=== PATIENT | female | born 1955 | race Hispanic/Latino ===

== ENCOUNTER 2019-02-01 15:52 | Emergency (ER) | payer OTHER ==
--- OUTSIDE RECORDS SUMMARY | 2019-02-01 15:53 | XMS REPORT | Clinical Summary ---
:1955 Author Organization [facility] Address [address] [place] [address] Care Team Providers Name Role Phone Aureliano Willett Primary Care Provider Unavailable Allergies No Known Allergies Medications Medication Sig Dispensed Refills Start Date End Date Status metFORMIN Take 1,000 mg by 0 Active (GLUCOPHAGE) 1000 MG mouth daily with tablet breakfast. glipiZIDE Take 5 mg by mouth 2 0 Active (GLUCOTROL) 5 MG (two) times daily tablet before meals. ketorolac (ACULAR) Place 1 drop into 0 Active 0.5 % ophthalmic both eyes 4 (four) solution times daily. canagliflozin Take 300 mg by mouth 0 Active (INVOKANA) 300 mg daily. tablet gabapentin Take 300 mg by mouth 0 Active (NEURONTIN) 300 MG 3 (three) times capsule daily. lisinopril-hydrochlo Take 1 tablet by 0 Active rothiazide mouth daily. (PRINZIDE,ZESTORETIC ) 20-12.5 mg per tablet UNKNOWN Med Name: . 0 Active insulin aspart Inject 0 Active protamine-insulin subcutaneously 2 aspart (NOVOLOG MIX (two) times daily 70/30) 100 unit/mL with breakfast and (70-30) Soln dinner. injection INSULIN Inject 20 Units 0 Active GLARGINE,HUM.REC.ANL subcutaneously daily OG (TOUJEO SOLOSTAR with breakfast. SUBQ) Active Problems Problem Noted Date Elevated LFTs 09/12/2017 Jaundice 09/12/2017 Mass of pancreas 09/12/2017 Obstructive jaundice 09/12/2017 Hypertension 09/08/2016 DM type 2 (diabetes mellitus, type 2) 09/08/2016 PVD (peripheral vascular disease) 09/08/2016 Hyperlipidemia 09/08/2016 Normocytic anemia 09/08/2016 Limb ischemia 08/31/2016 Social History Tobacco Use Types Packs/Day Years Used Date Former Smoker 0.25 1 Quit: 11/11/1972 Smokeless Tobacco: Never Used Alcohol Use Drinks/Week oz/Week Comments No Sex Assigned at Date Recorded Not on file Job Start Date Occupation Industry Not on file Not on file Not on file Travel History Travel Start Travel End No recent travel history available. Last Filed Vital Signs Not on file Plan of Treatment Date Type Specialty Care Team Description 02/11/2019 Hospital Encounter Patel Ontiveros MD [address] [facility] [address] [place] [address] [phone] 02/11/2019 Surgery Patel Ontiveros MD [facility] [address] [facility] [address] [place] [address] [phone] Implants Implanted Type Area Cat Dog Or Other Pet Groomer Device Shelf Model / Identifier Expiration Serial / Date Lot Stent Bili Rx [id number] - [id number] Stents-Per N/A: [employer]: ENDO 07/17/2019 [id number] / Implanted: Qty: 1 on 09/16/2017 by King Mckay MD ipheral Bile / Duct [id number] Allograft,Dermacell 6x16cm - [id number] Tissue LIFENET 08/01/2017 [id number] / Implanted: Qty: 1 on 09/05/2016 Graft/Subs / titute Grft Shiraz Mrtrstm 500 Mg [id number] - [id number] Tissue [employer] 06/10/2018 [id number] / Implanted: Qty: 1 on 09/05/2016 by Ky Rose DPOziel Graft/Subs [id number] / titute [id number] Tissue Nucell Med W/Matrix Nc-1001 - [id number] Tissue Left: NUTECH MED NC-1001 / Implanted: Qty: 1 on 09/05/2016 by Ky Rose DPM Graft/Subs Foot / titute Allograft,Dermacell 6x16cm - [id number] Tissue Left: LIFENET 06/27/2019 [id number] / Implanted: Qty: 1 on 12/06/2016 by Ky Rose DPM Graft/Subs Foot [id number] / titute Epifix Injectable 160mg Ei-[id number] - [id number] Tissue [employer] 11/2020 [id number] / Implanted: Qty: 1 on 12/06/2016 by Ky Rose DPM Graft/Subs / titute [id number] Results Not on fileafter 01/31/2018 Insurance Payer Benefit Plan / Group Subscriber ID Type Phone Address MEDICARE MEDICARE A B xxxxxxxxxxx Medicare [facility] xxxxxxxxxxxx HMO/POS [phone] CHOICE CHOICE EXCHANGE Advance Directives For more information, please contact:[address] [phone] Code Status Date Activated Date Inactivated Comments Full Code 09/12/2017 11:25 PM 09/17/2017 5:25 PM This code status was determined by: Patient Full Code 09/07/2016 10:50 AM 09/08/2016 7:30 PM This code status was determined by: Patient
--- OUTSIDE RECORDS SUMMARY | 2019-02-01 15:54 | XMS REPORT | Continuity of Care Document ---
:1955 Author Organization Interface Problems Problem Status Onset Classification Date Comments Source Date Reported ADENOCARCINOMA OF Active 12/16/19 [facility] PANCREAS 19 Malignant 06/18/20 12/29/2018 [facility] neoplasm of head 18 of pancreas MALIGNANT Active 09/16/20 [facility] NEOPLASM OF 17 PANCREATIC HEAD PANCREATIC CANCER Active 11/11/19 [facility] 01 MALIGNANT Active [facility] NEOPLASM OF HEAD OF PANCREAS Medications Medication Details Route Status Patient Ordering Order Source Instructions Provider Date Imodium A-D 2 mg, PO, Active PRN, 0 2017 [facility] Refill(s) gabapentin PO, BID, Active 0 2017 [facility] Refill(s) Hydrochlorothiazide 12.5 mg, Active PO, 2017 [facility] Daily, 0 Refill(s) Ketorolac See Active Tromethamine 5 MG/ML Instructi 2017 [facility] Ophthalmic Solution ons, 1 drp BOTH EYES QID, 0 Refill(s) Lisinopril 20 mg, Active PO, 2017 [facility] Daily, 0 Refill(s) 1.5 ML Insulin 35 units, Active Glargine 300 UNT/ML SUB-Q, 2017 [facility] Prefilled Syringe Daily, 0 [Toujeo] Refill(s) Glipizide 5 mg, PO, Active Daily, 0 2017 [facility] Refill(s) Allergies, Adverse Reactions, Alerts Substance Category Reaction Severity Reaction Status Date Comments Source type Reported Immunizations Immunization Date Given Site Status Last Updated Comments Source Results Order Results Value Reference Date Interpretation Comments Source Name Range Vital Signs Vital Sign Value Date Comments Source Weight 61.847 12/24/2018 [facility] Heart Rate 85 12/24/2018 [facility] Respitory Rate 18 12/24/2018 [facility] Systolic (mm Hg) 148 12/24/2018 [facility] Diastolic (mm Hg) 66 12/24/2018 [facility] Weight 65.966 06/11/2018 [facility] Heart Rate 80 06/11/2018 [facility] Respitory Rate 16 06/11/2018 [facility] Systolic (mm Hg) 129 06/11/2018 [facility] Diastolic (mm Hg) 68 06/11/2018 [facility] Heart Rate 86 04/09/2018 [facility] Systolic (mm Hg) 130 04/09/2018 [facility] Diastolic (mm Hg) 72 04/09/2018 [facility] Respitory Rate 16 04/09/2018 [facility] Weight 70.114 04/02/2018 [facility] Systolic (mm Hg) 133 04/02/2018 [facility] Diastolic (mm Hg) 88 04/02/2018 [facility] Respitory Rate 18 04/02/2018 [facility] Heart Rate 68 04/02/2018 [facility] Weight 71.051 03/26/2018 [facility] BMI Calculated 28.65 03/26/2018 [facility] Height 157.48 cm 03/26/2018 [facility] Respitory Rate 18 03/26/2018 [facility] Heart Rate 76 03/26/2018 [facility] Systolic (mm Hg) 147 03/26/2018 [facility] Diastolic (mm Hg) 73 03/26/2018 [facility] Encounters Location Location Encounter Encounter Reason Attending ADM DC Status Source Details Type Number For Provider Date Date Visit [facility] Recurring [id number] [facility] [id number] [facility] [id number] Fabian 06/11 06/12 [facility] Sabino /2017 [facility] Outpatient [id number] Fabian 12/24 12/25 [facility] Sabino /2018 [facility] Procedures Procedure Code Date Perfomer Comments Source Amputation great [id number] [facility]
--- OUTSIDE RECORDS SUMMARY | 2019-02-01 15:54 | XMS REPORT | Summary of Care ---
:1955 Author Organization [facility] [place] [facility] Address [address] [place], [place] [address]- Encounter [facility] Encntr_alias(FIN) [id number] Date(s): 06/11/18 - 06/11/18 [facility] [place] [facility] [address] [place] [address]- [phone] Encounter Diagnosis Malignant neoplasm of head of pancreas (Final) - 06/17/18 Discharge Disposition: Home or Self Care Attending Physician: Fabian Gallo MD Vital Signs Most recent to oldest [Reference Range]: 1 Blood Pressure [90-140/60-90 mmHg] 129/68 mmHg (06/11/18 1:05 PM) Respiratory Rate [14-20 BRMIN] 16 BRMIN (06/11/18 1:05 PM) Peripheral Pulse Rate [60-100 bpm] 80 bpm (06/11/18 1:05 PM) Weight 65.966 kg (06/11/18 1:05 PM) Problem List No data available for this section Allergies, Adverse Reactions, Alerts Substance Reaction Severity Status NKDA Active Medications No data available for this section Results No data available for this section Immunizations No data available for this section Procedures Procedure Date Related Diagnosis Body Site Status Amputation great toe Completed Social History Social History Type Response Substance Abuse Use: None. Alcohol Never Smoking Status Never smoker; Previous treatment: None; Exposure to Tobacco Smoke None; Cigarette Smoking Last 365 Days No; Reg Smoking Cessation Counseling No entered on: 12/24/18 Assessment and Plan No data available for this section
--- OUTSIDE RECORDS SUMMARY | 2019-02-01 15:54 | XMS REPORT | Summary of Care ---
:1955 Author Organization [facility] Address [address] [place], [place] [address]- Encounter [facility] Encntr_alishantell(FIN) [id number] Date(s): 12/24/18 - 12/24/18 [facility] [address] [place] [address]- [phone] Discharge Disposition: Home or Self Care Attending Physician: Fabian Gallo MD Referring Physician: Sheng Pearson MD Vital Signs Most recent to oldest [Reference Range]: 1 Blood Pressure [90-140/60-90 mmHg] 148/66 mmHg *HI* (12/24/18 9:44 AM) Respiratory Rate [14-20 BRMIN] 18 BRMIN (12/24/18 9:44 AM) Peripheral Pulse Rate [60-100 bpm] 85 bpm (12/24/18 9:44 AM) Weight 61.847 kg (12/24/18 9:44 AM) Problem List No data available for this [...]
--- OUTSIDE RECORDS SUMMARY | 2019-02-01 15:55 | XMS REPORT ---
:1955 [facility] Address [address] [place] [address] Dr. Zapata [address] [place] [address] Care Team Providers Name Role Phone NEMO SUGGS Unavailable Unavailable INDIRA HIGGINS Unavailable Unavailable Problems This patient has no known problems. Allergies, Adverse Reactions, Alerts This patient has no known allergies or adverse reactions. Medications This patient has no known medications. Results Test Description Test Time Test Comments Text Results Atomic Results Result Comments FINE NEEDLE ASPIRATION 2017-09-18 13:25:00 Medical Cytology Report BY CLINICIAN Case: [id number] Authorizing Provider: King Mckay MD Collected: 09/16/2017 1613 Ordering Location: [address] Received: 09/16/2017 1820 SERVICE Pathologist: Rosamaria Gandhi MD Specimen: Pancreas, Head, Head of pancreas mass HEAD OF PANCREAS MASS, FNA BY CLINICIAN (CYTOSPINS AND CELL BLOCK OF ASPIRATE): - ADENOCARCINOMA Signing Pathologist Direct Phone Line: [phone] signed by Rosamaria Gandhi MD on 09/18/2017 at 1:25 [id number], 612479.0 x 4.0 cm irregular head of pancreas massHEAD OF PANCREAS MASS FNACell block(A2) and 4 cytospins prepared from 20 ml cytorich red fixative sampleCollected: [id number]: [id number], [facility] of [facility], [address] [place] [address], [facility], [facility] of [facility], [address] [place] [address], BLOOD CULTURE 2017-09-18 10:00:00 Test Item Value Reference Range Comments CULTURE (BEAKER) (test zaly=1997) No growth in 5 days BLOOD [id number] 10:00:00 Test Item Value Reference Range Comments CULTURE (BEAKER) (test eeip=7141) No growth in 5 days POCT-GLUCOSE [id number] 08:04:00 Test Item Value Reference Range Comments POC-GLUCOSE METER (BEAKER) 129 mg/dL 70-[address] [facility] [address] (test ickh=2990) [facility] [address] [id number] 06:57:00 Test Item Value Reference Range Comments MAGNESIUM (BEAKER) (test akuo=443) 1.9 mg/dL 1.6-2.6 BASIC METABOLIC [id number] 06:57:00 Test Item Value Reference Range Comments SODIUM (BEAKER) (test 135 meq/L 136-145 lfwq=724) POTASSIUM (BEAKER) (test 3.8 meq/L 3.5-5.1 jviq=095) CHLORIDE (BEAKER) (test 101 meq/L 98-107 lrqg=272) CO2 (BEAKER) (test 26 meq/L 22-29 svpw=273) BLOOD UREA NITROGEN 19 mg/dL 7-21 (BEAKER) (test qjsm=045) CREATININE (BEAKER) (test 0.60 mg/dL 0.57-1.25 kgdf=329) GLUCOSE RANDOM (BEAKER) 143 mg/dL 70-105 (test frwi=294) CALCIUM (BEAKER) (test 8.8 mg/dL 8.4-10.2 jjtp=020) EGFR (BEAKER) (test 102 mL/min/1.73 sq m ESTIMATED GFR IS NOT guin=7440) ACCURATE CREATININE CLEARANCE IN PREDICTING GLOMERULAR FILTRATION RATE. ESTIMATED GFR IS NOT APPLICABLE FOR DIALYSIS PATIENTS. Specimen moderately ictericHEPATIC FUNCTION [id number] 06:57:00 Test Item Value Reference Range Comments TOTAL PROTEIN (BEAKER) (test jkfk=244) 6.9 gm/dL 6.0-8.3 ALBUMIN (BEAKER) (test bacx=8197) 2.7 g/dL 3.5-5.0 BILIRUBIN TOTAL (BEAKER) (test ekam=787) 9.7 mg/dL 0.2-1.2 BILIRUBIN DIRECT (BEAKER) (test gsma=660) 7.0 mg/dL 0.1-0.5 ALKALINE PHOSPHATASE (BEAKER) (test qiiu=938) 467 U/L 40-150 AST (SGOT) (BEAKER) (test wend=353) 146 U/L 5-34 ALT (SGPT) (BEAKER) (test elno=680) 100 U/L 6-55 Specimen moderately ictericCBC W/PLT COUNT & AUTO [id number] 06: 31:00 Test Item Value Reference Range Comments WHITE BLOOD CELL COUNT (BEAKER) (test nrwo=069) 6.9 K/ L 3.5-10.5 RED BLOOD CELL COUNT (BEAKER) (test uwtv=538) 3.59 M/ L 3.93-5.22 HEMOGLOBIN (BEAKER) (test vroa=733) 10.7 GM/DL 11.2-15.7 HEMATOCRIT (BEAKER) (test bexs=054) 31.9 % 34.1-44.9 MEAN CORPUSCULAR VOLUME (BEAKER) (test vsci=315) 88.9 fL 79.4-94.8 MEAN CORPUSCULAR HEMOGLOBIN (BEAKER) (test 29.8 pg 25.6-32.2 amrz=533) MEAN CORPUSCULAR HEMOGLOBIN CONC (BEAKER) (test 33.5 GM/DL 32.2-35.5 yhru=110) RED CELL DISTRIBUTION WIDTH (BEAKER) (test 15.1 % 11.7-14.4 erdq=716) PLATELET COUNT (BEAKER) (test nmgh=985) 245 K/CU MM 150-450 MEAN PLATELET VOLUME (BEAKER) (test oxvp=298) 12.3 fL 9.4-12.3 NUCLEATED RED BLOOD CELLS (BEAKER) (test 0 /100 WBC 0-0 usps=312) NEUTROPHILS RELATIVE PERCENT (BEAKER) (test 74 % piey=712) LYMPHOCYTES RELATIVE PERCENT (BEAKER) (test 15 % mjta=160) MONOCYTES RELATIVE PERCENT (BEAKER) (test 8 % qidc=434) EOSINOPHILS RELATIVE PERCENT (BEAKER) (test 2 % xqum=465) BASOPHILS RELATIVE PERCENT (BEAKER) (test 1 % snkp=035) NEUTROPHILS ABSOLUTE COUNT (BEAKER) (test 5.10 K/ L 1.56-6.13 yvzs=583) LYMPHOCYTES ABSOLUTE COUNT (BEAKER) (test 1.03 K/ L 1.18-3.74 dgqc=797) MONOCYTES ABSOLUTE COUNT (BEAKER) (test 0.53 K/ L 0.24-0.36 sdgk=576) EOSINOPHILS ABSOLUTE COUNT (BEAKER) (test 0.12 K/ L 0.04-0.36 ejqp=073) BASOPHILS ABSOLUTE COUNT (BEAKER) (test 0.06 K/ L 0.01-0.08 elpi=742) IMMATURE GRANULOCYTES-RELATIVE PERCENT (BEAKER) 0 % 0-1 (test bwbd=8468) POCT-GLUCOSE [id number] 21:05:00 Test Item Value Reference Range Comments POC-GLUCOSE METER (BEAKER) 173 mg/dL 70-110 TESTED AT [address] (test tvst=8507) [place] [address] FINE NEEDLE ASPIRATE (FNA) [id number] 20:00:00 Test Item Value Reference Range Comments CYTOLOGY RESULT POINTER (BEAKER) (test See Separate Report uvhz=6954) POCT-GLUCOSE [id number] 18:51:00 Test Item Value Reference Range Comments POC-GLUCOSE METER (BEAKER) 121 mg/dL 70-110 TESTED AT [address] (test mjoo=7375) [place] [address] POCT-GLUCOSE [id number] 16:55:00 Test Item Value Reference Range Comments POC-GLUCOSE METER (BEAKER) 103 mg/dL 70-110 TESTED AT [address] (test gryf=3862) [place] [address] [place], [id number] 16:36:00Reason for exam:->abnormal imagingFINAL REPORT ERCP Clinical History: abnormal imaging Impression: Intraoperative images are obtained. The radiologist is not present during the procedure. Images are presented for interpretation at the completion of the procedure. Please refer to the procedure report for more details. Number of images obtained: Five Fluoroscopic time: 73.3 seconds Signed: Jasbir Kruse Verified Date/Time: 09/16/2017 16:36:01 Reading Location: [facility] [id number] Consult Reading Room 04: 36 PMPOCT-GLUCOSE [id number] 12:15:00 Test Item Value Reference Range Comments POC-GLUCOSE METER (BEAKER) 131 mg/dL 70-110 TESTED AT [address] (test wqwc=6951) [facility] [address] [id number] 11:27:00 Test Item Value Reference Range Comments MAGNESIUM (BEAKER) (test nkiz=012) 1.8 mg/dL 1.6-2.6 BASIC METABOLIC [id number] 11:27:00 Test Item Value Reference Range Comments SODIUM (BEAKER) (test 137 meq/L 136-145 gnpg=178) POTASSIUM (BEAKER) (test 3.1 meq/L 3.5-5.1 hnxd=883) CHLORIDE (BEAKER) (test 102 meq/L 98-107 mscg=869) CO2 (BEAKER) (test 25 meq/L 22-29 wvvo=374) BLOOD UREA NITROGEN 17 mg/dL 7-21 (BEAKER) (test bewl=072) CREATININE (BEAKER) (test 0.63 mg/dL 0.57-1.25 uofz=714) GLUCOSE RANDOM (BEAKER) 145 mg/dL 70-105 (test fqqj=304) CALCIUM (BEAKER) (test 8.6 mg/dL 8.4-10.2 hrvp=950) EGFR (BEAKER) (test 96 mL/min/1.73 sq m ESTIMATED GFR IS NOT yvdr=6256) ACCURATE CREATININE CLEARANCE IN PREDICTING GLOMERULAR FILTRATION RATE. ESTIMATED GFR IS NOT APPLICABLE FOR DIALYSIS PATIENTS. Specimen markedly ictericPOCT-GLUCOSE [id number] 07:39:00 Test Item Value Reference Range Comments POC-GLUCOSE METER (BEAKER) 132 mg/dL 70-110 TESTED AT [address] (test sdio=3735) [facility] [address] HEPATIC FUNCTION [id number] 07:19:00 Test Item Value Reference Range Comments TOTAL PROTEIN (BEAKER) (test isfw=875) 6.4 gm/dL 6.0-8.3 ALBUMIN (BEAKER) (test bbhq=9257) 2.5 g/dL 3.5-5.0 BILIRUBIN TOTAL (BEAKER) (test ijlp=912) 13.7 mg/dL 0.2-1.2 BILIRUBIN DIRECT (BEAKER) (test okfu=412) 10.0 mg/dL 0.1-0.5 ALKALINE PHOSPHATASE (BEAKER) (test tbeq=308) 478 U/L 40-150 AST (SGOT) (BEAKER) (test pdyz=571) 186 U/L 5-34 ALT (SGPT) (BEAKER) (test nrsz=733) 109 U/L 6-55 Specimen markedly ictericPROTHROMBIN [id number] 01:09:00 Test Item Value Reference Range Comments PROTIME (BEAKER) (test foui=883) 15.9 seconds 11.7-14.7 INR (BEAKER) (test fflb=122) 1.3 <=5.9 RECOMMENDED COUMADIN/WARFARIN INR THERAPY RANGESSTANDARD DOSE: 2.0 - 3.0 Includes: PROPHYLAXIS forvenous thrombosis, systemic embolization; TREATMENT for venous thrombosis and/or pulmonary embolus.HIGH RISK: Target INR is 2.5-3.5 for patients with mechanical heart valves.POCT-GLUCOSE [id number] 20:45:00 Test Item Value Reference Range Comments POC-GLUCOSE METER (BEAKER) 201 mg/dL 70-110 TESTED AT [address] (test ywah=4821) [place] [id number] POCT-GLUCOSE [id number] 17:04:00 Test Item Value Reference Range Comments POC-GLUCOSE METER (BEAKER) 270 mg/dL 70-110 TESTED AT [address] (test rnnh=6492) [place] [address] POCT-GLUCOSE [id number] 12:09:00 Test Item Value Reference Range Comments POC-GLUCOSE METER (BEAKER) 257 mg/dL 70-110 TESTED AT [address] (test bptq=8768) [place] [address] POCT-GLUCOSE [id number] 08:15:00 Test Item Value Reference Range Comments POC-GLUCOSE METER (BEAKER) 109 mg/dL 70-110 TESTED AT [address] (test urhi=7803) [place] [id number] POCT-GLUCOSE [id number] 21:42:00 Test Item Value Reference Range Comments POC-GLUCOSE METER (BEAKER) 204 mg/dL 70-110 TESTED AT [address] (test quqk=3751) [place] [address] CT, CHEST, WITH [id number] 20:16:00FINAL REPORT CT, CHEST, WITH CONTRAST INDICATION: Cough, new onset COMPARISON: None TECHNIQUE : Postcontrast axially oriented images were obtained from the thoracic inlet throughthe lung bases. Coronal and sagittal reformats were provided. DOSE REDUCTION: Dose modulation, iterative reconstruction, and/or weight-based adjustment of the mA/kV was utilized to reduce the radiation dose to as low as reasonably achievable. FINDINGS: Lungs and Pleura: Clear lungs. No effusion or pneumothorax.Central airways: Patent.Mediastinum: No adenopathy.Heart and pericardium: Normal cardiac size. No pericardial effusion. Dense calcified coronary artery disease.Great vessels: Normal calibers.Included upper abdomen: No acute abnormalities.Regional skeletal structures: Diffuse demineralization and degenerative changes. No aggressive appearing lesion. Additional findings: None. IMPRESSION: No acute pulmonary abnormality. Signed: JR Scott Robert MDReport Verified Date/Time: 09/14/2017 20:16:43 Reading Location: [address] Reading Room POCT-GLUCOSE [id number] 17:30:00 Test Item Value Reference Range Comments POC-GLUCOSE METER (BEAKER) 260 mg/dL 70-110 TESTED AT [address] (test gjzt=3242) [place] [address] [id number] 16:52:00 Test Item Value Reference Range Comments POTASSIUM (BEAKER) (test bguu=447) 4.0 meq/L 3.5-5.1 POCT-GLUCOSE [id number] 12:36:00 Test Item Value Reference Range Comments POC-GLUCOSE METER (BEAKER) 277 mg/dL 70-110 TESTED AT [address] (test qlli=6232) [place] [address] POCT-GLUCOSE [id number] 08:24:00 Test Item Value Reference Range Comments POC-GLUCOSE METER (BEAKER) 196 mg/dL 70-110 TESTED AT [address] (test shbd=3609) [place] [address] BASIC METABOLIC [id number] 07:07:00 Test Item Value Reference Range Comments SODIUM (BEAKER) (test 137 meq/L 136-145 ptdp=941) POTASSIUM (BEAKER) (test 2.8 meq/L 3.5-5.1 cbih=587) CHLORIDE (BEAKER) (test 103 meq/L 98-107 zaaz=531) CO2 (BEAKER) (test 26 meq/L 22-29 sppr=074) BLOOD UREA NITROGEN 15 mg/dL 7-21 (BEAKER) (test rqfz=821) CREATININE (BEAKER) (test 0.56 mg/dL 0.57-1.25 lmjh=832) GLUCOSE RANDOM (BEAKER) 173 mg/dL 70-105 (test wgol=944) CALCIUM (BEAKER) (test 8.4 mg/dL 8.4-10.2 qkvi=354) EGFR (BEAKER) (test 110 mL/min/1.73 sq m ESTIMATED GFR IS NOT byhp=0149) ACCURATE CREATININE CLEARANCE IN PREDICTING GLOMERULAR FILTRATION RATE. ESTIMATED GFR IS NOT APPLICABLE FOR DIALYSIS PATIENTS. Specimen moderately ictericHEPATIC FUNCTION [id number] 07:07:00 Test Item Value Reference Range Comments TOTAL PROTEIN (BEAKER) (test uvkb=682) 6.0 gm/dL 6.0-8.3 ALBUMIN (BEAKER) (test kzgq=8844) 2.4 g/dL 3.5-5.0 BILIRUBIN TOTAL (BEAKER) (test tvaj=577) 11.2 mg/dL 0.2-1.2 BILIRUBIN DIRECT (BEAKER) (test xkja=204) 8.2 mg/dL 0.1-0.5 ALKALINE PHOSPHATASE (BEAKER) (test qgwi=852) 435 U/L 40-150 AST (SGOT) (BEAKER) (test xxpo=463) 170 U/L 5-34 ALT (SGPT) (BEAKER) (test hopb=682) 109 U/L 6-55 Specimen moderately ictericCBC W/PLT COUNT & AUTO [id number] 06: 56:00 Test Item Value Reference Range Comments WHITE BLOOD CELL COUNT (BEAKER) (test demm=589) 7.0 K/ L 3.5-10.5 RED BLOOD CELL COUNT (BEAKER) (test rudo=921) 3.54 M/ L 3.93-5.22 HEMOGLOBIN (BEAKER) (test trzu=790) 10.2 GM/DL 11.2-15.7 HEMATOCRIT (BEAKER) (test sgru=584) 30.7 % 34.1-44.9 MEAN CORPUSCULAR VOLUME (BEAKER) (test xxyu=474) 86.7 fL 79.4-94.8 MEAN CORPUSCULAR HEMOGLOBIN (BEAKER) (test 28.8 pg 25.6-32.2 swqi=012) MEAN CORPUSCULAR HEMOGLOBIN CONC (BEAKER) (test 33.2 GM/DL 32.2-35.5 rctb=522) RED CELL DISTRIBUTION WIDTH (BEAKER) (test 15.5 % 11.7-14.4 rscz=575) PLATELET COUNT (BEAKER) (test znlf=267) 220 K/CU MM 150-450 MEAN PLATELET VOLUME (BEAKER) (test kzlu=092) 12.5 fL 9.4-12.3 NUCLEATED RED BLOOD CELLS (BEAKER) (test 0 /100 WBC 0-0 ajno=827) NEUTROPHILS RELATIVE PERCENT (BEAKER) (test 68 % mstg=931) LYMPHOCYTES RELATIVE PERCENT (BEAKER) (test 16 % wheo=103) MONOCYTES RELATIVE PERCENT (BEAKER) (test 8 % ijsl=786) EOSINOPHILS RELATIVE PERCENT (BEAKER) (test 7 % xpfi=055) BASOPHILS RELATIVE PERCENT (BEAKER) (test 1 % lxmg=455) NEUTROPHILS ABSOLUTE COUNT (BEAKER) (test 4.71 K/ L 1.56-6.13 ywhd=433) LYMPHOCYTES ABSOLUTE COUNT (BEAKER) (test 1.13 K/ L 1.18-3.74 qbtj=477) MONOCYTES ABSOLUTE COUNT (BEAKER) (test 0.58 K/ L 0.24-0.36 psef=871) EOSINOPHILS ABSOLUTE COUNT (BEAKER) (test 0.47 K/ L 0.04-0.36 qrir=182) BASOPHILS ABSOLUTE COUNT (BEAKER) (test 0.06 K/ L 0.01-0.08 jqyn=150) IMMATURE GRANULOCYTES-RELATIVE PERCENT (BEAKER) 0 % 0-1 (test uqnv=9454) POCT-GLUCOSE [id number] 21:48:00 Test Item Value Reference Range Comments POC-GLUCOSE METER (BEAKER) 356 mg/dL 70-110 Notified PANCHO MARTINEZ/TESTED AT [facility] (test hlcr=5593) [address] [facility] [address] POCT-GLUCOSE [id number] 17:47:00 Test Item Value Reference Range Comments POC-GLUCOSE METER (BEAKER) 233 mg/dL 70-110 TESTED AT [address] (test mpda=0575) [place] [address] U/S, ABDOMINAL, [id number] 16:40:00Reason for exam:->ascitesShould this be performed at the bedside?->NoFINAL REPORT Abdominal ultrasound, limited, 09/13/2017. History: Evaluate forascites. Comparison: CT 09/12/2017. Discussion: Transverse and longitudinal images of the 4 quadrantsof the abdomen were obtained, demonstrating only trace amounts of free fluid anteriorly. IMPRESSION: Minimal ascites, insufficient for paracentesis. Signed: Bladimir Buckner Verified Date/Time: 09/13/2017 16: 40:44 Reading Location: [address] Ultrasound Reading Room POCT-GLUCOSE [id number] 12:14:00 Test Item Value Reference Range Comments POC-GLUCOSE METER (BEAKER) 206 mg/dL 70-110 TESTED AT [address] (test ytqa=1924) [place] [address] POCT-GLUCOSE [id number] 09:44:00 Test Item Value Reference Range Comments POC-GLUCOSE METER (BEAKER) 246 mg/dL 70-110 TESTED AT [address] (test iwhm=4428) [place] [address] CARCINOEMBRYONIC ANTIGEN (CEA)2017-09-13 06:33:00 Test Item Value Reference Range Comments CARCINOEMBRYONIC ANTIGEN (BEAKER) (test cfou=492) 3.9 ng/mL 0.0-5.0 ALPHA FETOPROTEIN (AFP), TUMOR [id number] 06:33:00 Test Item Value Reference Range Comments ALPHA-FETOPROTEIN (BEAKER) (test jska=9857) 3.1 ng/mL <10.0 [id number] 06:16:00 Test Item Value Reference Range Comments PHOSPHORUS (BEAKER) (test qxqg=171) 2.3 mg/dL 2.3-4.7 [id number] 06:16:00 Test Item Value Reference Range Comments MAGNESIUM (BEAKER) (test uhvx=212) 1.7 mg/dL 1.6-2.6 BASIC METABOLIC [id number] 06:16:00 Test Item Value Reference Range Comments SODIUM (BEAKER) (test 136 meq/L 136-145 rpyi=082) POTASSIUM (BEAKER) (test 2.8 meq/L 3.5-5.1 vvlj=220) CHLORIDE (BEAKER) (test 103 meq/L 98-107 enco=838) CO2 (BEAKER) (test 24 meq/L 22-29 wapc=713) BLOOD UREA NITROGEN 15 mg/dL 7-21 (BEAKER) (test ckfm=935) CREATININE (BEAKER) (test 0.65 mg/dL 0.57-1.25 txac=044) GLUCOSE RANDOM (BEAKER) 212 mg/dL 70-105 (test hxcg=576) CALCIUM (BEAKER) (test 8.9 mg/dL 8.4-10.2 ekjv=742) EGFR (BEAKER) (test 93 mL/min/1.73 sq m ESTIMATED GFR IS NOT tgdc=3424) ACCURATE CREATININE CLEARANCE IN PREDICTING GLOMERULAR FILTRATION RATE. ESTIMATED GFR IS NOT APPLICABLE FOR DIALYSIS PATIENTS. Specimen markedly ictericHEPATIC FUNCTION [id number] 06:16:00 Test Item Value Reference Range Comments TOTAL PROTEIN (BEAKER) (test zcyv=617) 6.7 gm/dL 6.0-8.3 ALBUMIN (BEAKER) (test buox=9746) 2.7 g/dL 3.5-5.0 BILIRUBIN TOTAL (BEAKER) (test patc=987) 13.4 mg/dL 0.2-1.2 BILIRUBIN DIRECT (BEAKER) (test qmag=875) 10.0 mg/dL 0.1-0.5 ALKALINE PHOSPHATASE (BEAKER) (test doju=275) 449 U/L 40-150 AST (SGOT) (BEAKER) (test efed=220) 166 U/L 5-34 ALT (SGPT) (BEAKER) (test txnd=272) 123 U/L 6-55 Specimen markedly ictericPROTHROMBIN [id number] 06:06:00 Test Item Value Reference Range Comments PROTIME (BEAKER) (test qfsi=031) 15.0 seconds 11.7-14.7 INR (BEAKER) (test yyic=102) 1.2 <=5.9 RECOMMENDED COUMADIN/WARFARIN INR THERAPY RANGESSTANDARD DOSE: 2.0 - 3.0 Includes: PROPHYLAXIS forvenous thrombosis, systemic embolization; TREATMENT for venous thrombosis and/or pulmonary embolus.HIGH RISK: Target INR is 2.5-3.5 for patients with mechanical heart valves.CBC W/PLT COUNT & AUTO [id number] 05:54:00 Test Item Value Reference Range Comments WHITE BLOOD CELL COUNT (BEAKER) (test ujbp=841) 9.2 K/ L 3.5-10.5 RED BLOOD CELL COUNT (BEAKER) (test jkma=875) 3.43 M/ L 3.93-5.22 HEMOGLOBIN (BEAKER) (test ktyu=958) 10.0 GM/DL 11.2-15.7 HEMATOCRIT (BEAKER) (test oxtl=627) 30.1 % 34.1-44.9 MEAN CORPUSCULAR VOLUME (BEAKER) (test nlpp=535) 87.8 fL 79.4-94.8 MEAN CORPUSCULAR HEMOGLOBIN (BEAKER) (test 29.2 pg 25.6-32.2 fazs=373) MEAN CORPUSCULAR HEMOGLOBIN CONC (BEAKER) (test 33.2 GM/DL 32.2-35.5 sqzt=929) RED CELL DISTRIBUTION WIDTH (BEAKER) (test 15.3 % 11.7-14.4 gdkr=611) PLATELET COUNT (BEAKER) (test bcbz=224) 237 K/CU MM 150-450 MEAN PLATELET VOLUME (BEAKER) (test gokx=663) 12.2 fL 9.4-12.3 NUCLEATED RED BLOOD CELLS (BEAKER) (test 0 /100 WBC 0-0 mhsv=706) NEUTROPHILS RELATIVE PERCENT (BEAKER) (test 72 % yatr=698) LYMPHOCYTES RELATIVE PERCENT (BEAKER) (test 14 % pcyn=741) MONOCYTES RELATIVE PERCENT (BEAKER) (test 9 % zsol=100) EOSINOPHILS RELATIVE PERCENT (BEAKER) (test 5 % nbik=993) BASOPHILS RELATIVE PERCENT (BEAKER) (test 1 % ogli=227) NEUTROPHILS ABSOLUTE COUNT (BEAKER) (test 6.56 K/ L 1.56-6.13 dqka=756) LYMPHOCYTES ABSOLUTE COUNT (BEAKER) (test 1.26 K/ L 1.18-3.74 uslq=030) MONOCYTES ABSOLUTE COUNT (BEAKER) (test 0.78 K/ L 0.24-0.36 mzzu=400) EOSINOPHILS ABSOLUTE COUNT (BEAKER) (test 0.44 K/ L 0.04-0.36 vvlo=322) BASOPHILS ABSOLUTE COUNT (BEAKER) (test 0.07 K/ L 0.01-0.08 jqan=348) IMMATURE GRANULOCYTES-RELATIVE PERCENT (BEAKER) 1 % 0-1 (test ctzk=3351) POCT-GLUCOSE [id number] 23:45:00 Test Item Value Reference Range Comments POC-GLUCOSE METER (BEAKER) 405 mg/dL 70-110 Will Repeat Test/TESTED AT (test mgsj=9234) [facility] [address] [facility] [address] POCT-GLUCOSE [id number] 21:52:00 Test Item Value Reference Range Comments POC-GLUCOSE METER (BEAKER) 423 mg/dL 70-110 TESTED AT [address] (test jfti=1557) [facility] [address] CT, [id number] 21:46:00Reason for exam:->JAUNDICEWhat is the patient' s sedation requirement?->No SedationIs the patient ?->NoFINAL REPORT CT of the abdomen and pelvis History: Jaundice Comparison: None available. Technique: Multidetector CT scanning of the abdomen and pelvis was performed from the level of the lung bases to the inferior pubic ramus, with intravenous administration of non-ionic contrast and without oral contrast. Scanning during early and delayed phases was performed. DOSE REDUCTION: The examination was performed according to departmental dose- optimization program which includes automated exposure control, adjustment of the mA and/or kV according to patient size and/or use of iterative reconstruction technique. Discussion: The bilateral lung basesare clear. The liver is diffusely hypoattenuating compatible with hepatic steatosis. Several calcified granulomas are identified within the liver. Patient is status post cholecystectomy. There is mild intrahepatic biliary dilatation. The common bile duct is dilated up to 1.9 cm in diameter. No fillingdefects are identified within the common bile duct to suggest choledocholithiasis. There is a 2.5 x 2.3 cm hypodense mass within the pancreatic head and uncinate process which encases more than 50% of the superior mesenteric artery. The portal vein is also encased by the mass. The pancreatic duct is dilated to approximately 4 mm. There is a prominent 12 mm lymph node in the gastrohepatic ligament. The spleen is within normal limits. The bilateral adrenal glands are unremarkable. The kidneys are normal in size. Bilateral renal cysts are present and are no kidney stones. There is no evidence of hydroureteronephrosis bilaterally. The stomach, small, and large bowel are nondistended. There is no evidence of obstruction. There are scattered colonic diverticula without evidence of acute diverticulitis.There is no free intraperitoneal air. There is a small amount of ascites within the pelvis. The abdominal aorta normal course and caliber and demonstrates moderate atherosclerotic changes. The urinary bladder is within normal limits. Patient status post hysterectomy. No acute osseous abnormalities areidentified. IMPRESSION: 1. Mass within the head and uncinate pancreas concerning for primary pancreatic neoplasm. There is encasement of the celiac and SMA by more than 50%. There is moderate pancreatic ductal dilatation, marked dilatation of the common bile duct, and mild intrahepatic biliary dilatation. Enlarged lymph nodes are noted in the gastrohepatic ligament.2. Small amount of ascites.3. Hepatic steatosis.4. Status post cholecystectomy.5. Status post hysterectomy. Signed: Ryley Micheal MDReport Verified Date/Time: 09/12/2017 21:46:33 Reading Location: [address] Consult Reading Room URINALYSIS W/ [id number] 19:36:00 Test Item Value Reference Range Comments COLOR (BEAKER) (test xkud=967) Dark Yellow CLARITY (BEAKER) (test gfax=144) Hazy SPECIFIC GRAVITY UA (BEAKER) (test 1.022 1.001-1.035 iuyi=332) PH UA (BEAKER) (test xeix=782) 5.0 5.0-8.0 PROTEIN UA (BEAKER) (test qmuq=168) 30 mg/dL Negative GLUCOSE UA (BEAKER) (test prtd=598) >1000 mg/dL Negative KETONES UA (BEAKER) (test pzbm=768) Negative Negative BILIRUBIN UA (BEAKER) (test zpxk=432) Positive Negative BLOOD UA (BEAKER) (test vvaj=280) Trace Negative NITRITE UA (BEAKER) (test jsmh=905) Negative Negative LEUKOCYTE ESTERASE UA (BEAKER) (test Negative Negative wazq=376) UROBILINOGEN UA (BEAKER) (test kfcd=777) 0.2 mg/dL 0.2-1.0 RBC UA (BEAKER) (test nwgb=908) 1 /HPF WBC UA (BEAKER) (test nysn=208) 10 /HPF BACTERIA (BEAKER) (test mwqo=399) Rare MUCUS (BEAKER) (test fsgn=7630) Rare SQUAMOUS EPITHELIAL (BEAKER) (test 1 /HPF dlxh=077) YEAST (BEAKER) (test tcrn=8231) Few SOURCE(BEAKER) (test wlyw=5993) Urine, Clean Catch COMPREHENSIVE METABOLIC [id number] 17:47:00 Test Item Value Reference Range Comments TOTAL PROTEIN (BEAKER) 7.5 gm/dL 6.0-8.3 Specimen slightly (test ujxv=640) hemolyzed ALBUMIN (BEAKER) (test 3.0 g/dL 3.5-5.0 Specimen slightly wobq=3232) hemolyzed ALKALINE PHOSPHATASE 492 U/L 40-150 (BEAKER) (test pvww=576) BILIRUBIN TOTAL (BEAKER) 14.3 mg/dL 0.2-1.2 Specimen slightly (test skqy=102) hemolyzed SODIUM (BEAKER) (test 133 meq/L 136-145 jzuw=317) POTASSIUM (BEAKER) (test 3.5 meq/L 3.5-5.1 Specimen slightly qslt=938) hemolyzed CHLORIDE (BEAKER) (test 97 meq/L 98-107 qawm=618) CO2 (BEAKER) (test 25 meq/L 22-29 mdep=672) BLOOD UREA NITROGEN 17 mg/dL 7-21 (BEAKER) (test ykas=052) CREATININE (BEAKER) (test 0.59 mg/dL 0.57-1.25 Specimen slightly plbs=107) hemolyzed GLUCOSE RANDOM (BEAKER) 427 mg/dL 70-105 (test yqem=585) CALCIUM (BEAKER) (test 9.4 mg/dL 8.4-10.2 sukh=322) AST (SGOT) (BEAKER) (test 184 U/L 5-34 Specimen slightly lind=050) hemolyzed ALT (SGPT) (BEAKER) (test 141 U/L 6-55 Specimen slightly olzs=682) hemolyzed EGFR (BEAKER) (test 104 mL/min/1.73 sq ESTIMATED GFR IS NOT eere=0951) m ACCURATE CREATININE CLEARANCE IN PREDICTING GLOMERULAR FILTRATION RATE. ESTIMATED GFR IS NOT APPLICABLE FOR DIALYSIS PATIENTS. Specimen markedly [id number] 17:39:00 Test Item Value Reference Range Comments LIPASE (BEAKER) (test vsnz=053) 612 U/L 8-78 Specimen markedly ictericCBC W/PLT COUNT & AUTO [id number] 17:18 :00 Test Item Value Reference Range Comments WHITE BLOOD CELL COUNT (BEAKER) (test ayrt=973) 8.8 K/ L 3.5-10.5 RED BLOOD CELL COUNT (BEAKER) (test orow=897) 4.19 M/ L 3.93-5.22 HEMOGLOBIN (BEAKER) (test oymi=365) 12.2 GM/DL 11.2-15.7 HEMATOCRIT (BEAKER) (test ehij=126) 37.7 % 34.1-44.9 MEAN CORPUSCULAR VOLUME (BEAKER) (test emqs=254) 90.0 fL 79.4-94.8 MEAN CORPUSCULAR HEMOGLOBIN (BEAKER) (test 29.1 pg 25.6-32.2 dsyb=574) MEAN CORPUSCULAR HEMOGLOBIN CONC (BEAKER) (test 32.4 GM/DL 32.2-35.5 odba=690) RED CELL DISTRIBUTION WIDTH (BEAKER) (test 15.5 % 11.7-14.4 kcxs=909) PLATELET COUNT (BEAKER) (test dgvn=059) 236 K/CU MM 150-450 MEAN PLATELET VOLUME (BEAKER) (test gerf=607) 12.1 fL 9.4-12.3 NUCLEATED RED BLOOD CELLS (BEAKER) (test 0 /100 WBC 0-0 apcj=030) NEUTROPHILS RELATIVE PERCENT (BEAKER) (test 73 % wgof=980) LYMPHOCYTES RELATIVE PERCENT (BEAKER) (test 14 % wiui=274) MONOCYTES RELATIVE PERCENT (BEAKER) (test 7 % uiyt=627) EOSINOPHILS RELATIVE PERCENT (BEAKER) (test 4 % unro=934) BASOPHILS RELATIVE PERCENT (BEAKER) (test 1 % oczl=089) NEUTROPHILS ABSOLUTE COUNT (BEAKER) (test 6.44 K/ L 1.56-6.13 byzj=421) LYMPHOCYTES ABSOLUTE COUNT (BEAKER) (test 1.26 K/ L 1.18-3.74 yrtm=675) MONOCYTES ABSOLUTE COUNT (BEAKER) (test 0.65 K/ L 0.24-0.36 yfaa=783) EOSINOPHILS ABSOLUTE COUNT (BEAKER) (test 0.34 K/ L 0.04-0.36 ofwx=418) BASOPHILS ABSOLUTE COUNT (BEAKER) (test 0.09 K/ L 0.01-0.08 ezjo=679) IMMATURE GRANULOCYTES-RELATIVE PERCENT (BEAKER) 0 % 0-1 (test uzff=5561) AFB CULTURE + [id number] 18:21:00 Test Item Value Reference Range Comments CULTURE (BEAKER) (test No acid-fast bacilli isolated otel=0439) in 42 days AFB SMEAR (BEAKER) (test No acid fast bacilli seen fyqr=165) FUNGUS CULTURE + [id number] 17:21:00 Test Item Value Reference Range Comments CULTURE (BEAKER) (test No fungus isolated in 28 days ruhl=8499) FUNGUS SMEAR (BEAKER) (test No fungi seen dhmu=6504)
[2019-02-01 16:49] LABS: Absolute Lymphocytes (CBC) 0.8 K/uL (0.7-4.9); Absolute Monocytes 0.5 K/uL (0.1-1.3); Absolute Neutrophil 4.4 K/uL (1.8-8.0); Basophils % 0.5 % (0-1.3); Eosinophils % 2.1 % (0-4.4); Hematocrit 36.8 % (36.0-45.0); MPV 8.7 fL (7.6-11.3); Monocytes % 8.9 % (3.3-12.3); RBC Red Blood Cell Count 4.17 M/uL (3.86-4.86)
[2019-02-01 17:05] LABS: ALT/SGPT 30 U/L (12-78); AST/SGOT 25 U/L (15-37); Albumin 3.3 g/dL (3.4-5.0); Alkaline Phosphatase 140 U/L (45-117); BUN Blood Urea Nitrogen 17 mg/dL (7-18); Bicarbonate 31 mmol/L (21-32); Bilirubin Direct 0.2 mg/dL (0-0.2); Bilirubin Total 0.5 mg/dL (0.2-1.0); Glucose Level 272 mg/dL (74-106); Lipase 12 U/L (73-393); Potassium 3.6 mmol/L (3.5-5.1); Protein, Total 8.2 g/dL (6.4-8.2); Sodium Level 141 mmol/L (136-145)
--- NOTE | 2019-02-01 17:18 | RAD REPORT ---
EXAM DESCRIPTION: CT - Stone Protocol - 02/01/2019 4:54 pm CLINICAL HISTORY: Flank pain. FLANK PAIN COMPARISON: Abdomen Pelvis W/Wo Contrast dated 12/11/2018 TECHNIQUE: Axial images were obtained without oral or IV contrast. Lack of contrast limits solid org an and vascular assessment. The [id number] spans the entirety of the system partially obscuring uppermost abdomen and lung bases. Coronal reformatted images were obtained and reviewed. All CT scans are performed using dose optimization technique as appropriate and may include automated exposure control or mA/KV adjustment according to patient size. FINDINGS: The lower lung gordon are clear. Cholecystectomy is seen with central pneumobilia noted in the liver. Common bile duct stent is in [place] ce traversing the pancreatic head. Detail in this region is limited due to lack of contrast.The splee n is normal in size. The pancreas and adrenal glands are normal. No pathologic lymphadenopathy in the abdomen or pelvis. 2.8 cm right renal cyst is present. Punctate renal calculi seen bilaterally without hydronephrosis ao rtic atherosclerosis. No bowel obstruction, free air, free fluid or abscess. Normal appendix noted.Moderate stool is presen t in the colon. Prominent degenerative spondylosis is present at L5-S1 with large endplate osteophytes and vacuum dis c degeneration. Mild wedge compression deformity is present affecting L2, new since November comparati ve study, therefore likely acute to subacute in timeframe. IMPRESSION: Development of a mild compression deformity affecting L2 since November 2018. No canal co mpromise. MR imaging of the lumbar spine can be performed for follow-up assessment.
[2019-02-01] MEDS ORDERED: NA CHLORIDE 0.9% 1,000 ML ONE (17:37)
[2019-02-01] MEDS ORDERED: KETOROLAC 30 MG/ML INJ ONE (17:37)
--- NOTE | 2019-02-01 18:05 | EDPHYS ---
Physician Documentation [facility] Name: Ashley Beebe Age: 63 yrs Sex: Female : 1955 Arrival Date: 02/01/2019 Time: 15:56 Bed 19 Private MD: David Willett S ED Physician Orlin Brown HPI: 02/01 16:35 This 63 yrs old Female presents to ER via Ambulatory with complaints of Back cp Pain. 16:35 The patient presents with pain that is acute, with no known mechanism of injury. The cp symptoms are located in the left mid back and right mid back. Onset: The symptoms/episode began/occurred 1 week(s) ago. The pain does not radiate. Associated signs and symptoms: Pertinent negatives: abdominal pain, chest pain, constipation, dysuria, fever, incontinence, numbness, urinary retention, weakness. The problem was sustained from unknown cause. Patient reports PMHX significant for pancreatic CA. Patient c/o increasing pain mid back that started on right and now having pain of left mid back for past 1 week. Patient denies falls or injury to area. Historical: - Allergies: 16:08 Adhesives; hj - Home Meds: 16:08 atorvastatin Oral [Active]; glipizide 5 mg Oral tab 1 tab 2 times per day [Active]; hj Invokana Oral [Active]; ketorolac 0.5 % ophthalmic drop [Active]; lisinopril Oral [Active]; metformin 1,000 mg Oral tr24 1 tab once daily [Active]; - PMHx: 16:08 Diabetes - NIDDM; diabetic foot ulcer; High Cholesterol; Hypertension; ovarian CA; hj pancreatic cancer; - PSHx: 16:08 Hysterectomy; hj - Immunization history:: Adult Immunizations up to date. - Social history:: Smoking status: Patient/guardian denies using tobacco, Patient/guardian denies using alcohol. - Ebola Screening: : Patient negative for fever greater than or equal to 101.5 degrees Fahrenheit, and additional compatible Ebola Virus Disease symptoms Patient denies exposure to infectious person Patient denies travel to an Ebola-affected area in the 21 days before illness onset. ROS: 16:40 Constitutional: Negative for body aches, chills, fever, poor PO intake. cp 16:40 Eyes: Negative for injury, pain, redness, and discharge. cp 16:40 ENT: Negative for drainage from ear(s), ear pain, sore throat, difficulty swallowing, difficulty handling secretions. 16:40 Cardiovascular: Negative for chest pain, edema, palpitations. 16:40 Respiratory: Negative for cough, shortness of breath, wheezing. 16:40 Abdomen/GI: Negative for abdominal pain, nausea, vomiting, diarrhea, constipation, black/tarry stool, rectal bleeding, bowel incontinence. 16:40 Back: Positive for pain at rest, pain with movement, of the mid back area, Negative for injury or acute deformity, decreased range of motion. 16:40 : Negative for urinary symptoms, pelvic pain, bladder incontinence. 16:40 Skin: Negative for cellulitis, rash. 16:40 Neuro: Negative for altered mental status, dizziness, headache, numbness, tingling, weakness. 16:40 All other systems are negative. Exam: 16:50 Constitutional: The patient appears in no acute distress, alert, awake, cp non-diaphoretic, non-toxic, well developed, well nourished. 16:50 Head/Face: Normocephalic, atraumatic. cp 16:50 Eyes: Periorbital structures: appear normal, Conjunctiva: normal, no exudate, no cp injection, Sclera: no appreciated abnormality, Lids and lashes: appear normal, bilaterally. 16:50 ENT: External ear(s): are unremarkable, Nose: is normal, Mouth: Lips: moist, Oral mucosa: moist, Posterior pharynx: Airway: no evidence of obstruction, patent. 16:50 Neck: ROM/movement: is normal, is supple, without pain, no range of motions limitations, no nuchal rigidity. 16:50 Chest/axilla: Inspection: normal, Palpation: is normal, no crepitus, no tenderness. 16:50 Cardiovascular: Rate: normal, Rhythm: regular, Edema: is not appreciated. 16:50 Respiratory: the patient does not display signs of respiratory distress, Respirations: normal, no use of accessory muscles, no retractions, no splinting, no tachypnea, labored breathing, is not present, Breath sounds: are clear throughout, no decreased breath sounds, no stridor, no wheezing. 16:50 Abdomen/GI: Inspection: abdomen appears normal, Bowel sounds: active, all quadrants, cp Palpation: abdomen is soft and non-tender, in all quadrants, voluntary guarding, is not appreciated, involuntary guarding, is not appreciated. 16:50 Back: pain, that is moderate, of the right mid back, ROM is painful, with all movement, vertebral tenderness, is appreciated at T12 and L1, Straight leg raises: of both lower extremities does not illicit pain. 16:50 Musculoskeletal/extremity: Exam is negative for calf tenderness, decreased range of motion, deformity, injury. 16:50 Skin: cellulitis, is not appreciated, no rash present. 16:50 Neuro: Orientation: to person, place \T\ time. Mentation: is normal, Motor: moves all fours, strength is normal, Sensation: is normal. Vital Signs: 16:09 BP 129 / 65; Pulse 85; Resp 18; Temp 98.7(O); Pulse Ox 99% on R/A; Weight 58.97 kg; hj Height 5 ft. 3 in. (160.02 cm); Pain 10/10; 17:03 BP 109 / 61; Pulse 94; Resp 17; Pulse Ox 100% on R/A; tw2 18:02 BP 163 / 80; Pulse 73; Resp 17; Pulse Ox 100% on R/A; tw2 16:09 Body Mass Index 23.03 (58.97 kg, 160.02 cm) hj MDM: 16:14 Patient medically screened. cp 17:00 Differential diagnosis: Cholelithiasis chronic back pain, Epidural or Perispinal Abcess cp Fracture Metastatic Disease ruptured disc, Ureterolithiasis vertebral fracture, pyelonephritis. 18:03 Data reviewed: vital signs, nurses notes, lab test result(s), radiologic studies, CT cp scan. 18:03 Counseling: I had a detailed discussion with the patient and/or guardian regarding: the historical points, exam findings, and any diagnostic results supporting the discharge/admit diagnosis, lab results, radiology results, the need for outpatient follow up, a family practitioner, to return to the emergency department if symptoms worsen or persist or if there are any questions or concerns that arise at home. Response to treatment: Pain improved. VSS. Will discharge to home for continued monitoring. 02/01 16:29 Order name: Basic Metabolic Panel; Complete Time: 17:12 cp 02/01 17:12 Interpretation: Normal except: GLUC 272. cp 02/01 16:29 Order name: CBC with Diff; Complete Time: 17:12 cp 02/01 17:35 Interpretation: Normal except: MCV 88.1; AMIRA% 75.5; LYM% 13.0. 02/01 16:29 Order name: Creatinine for Radiology; Complete Time: 17:12 cp 02/01 16:29 Order name: Hepatic Function; Complete Time: 17:12 02/01 18:01 Interpretation: Normal except: ALK 140; ALB 3.3; GLOB 4.9; A/G 0.7. cp 02/01 16:29 Order name: Lipase; Complete Time: 17:12 cp 02/01 16:29 Order name: IV Saline Lock; Complete Time: 16:42 cp 02/01 16:29 Order name: Labs collected and sent; Complete Time: 16:42 02/01 16:31 Order name: CT Stone Protocol; Complete Time: 17:23 cp Administered Medications: 17:31 Drug: TORadol 30 mg Route: IVP; Site: right antecubital; tw2 18:01 Follow up: Response: No adverse reaction; Pain is decreased tw2 17:32 Drug: NS 0.9% 500 ml Route: IV; Rate: bolus; Site: right antecubital; tw2 18:13 Follow up: Response: No adverse reaction; IV Status: Order to discontinue infusion; IV tw2 Intake: 500ml Disposition: 02/02 07:30 Co-signature as Attending Physician, Orlin Brown MD I agree with the assessment and merced plan of care. Disposition: 02/01/19 18:04 Discharged to Home. Impression: Wedge compression fracture of second lumbar vertebra. - Condition is Stable. - Discharge Instructions: Spinal Compression Fracture. - Prescriptions for Tylenol- Codeine #3 300-30 mg Oral Tablet - take 2 tablets by ORAL route every 8 hours As needed; 20 tablet. Zofran 4 mg Oral Tablet - take 1 tablet by ORAL route every 12 hours As needed; 20 tablet. - Medication Reconciliation Form, Thank You Letter, Antibiotic Education, Prescription Opioid Use form. - Follow up: Private Physician; When: 1 - 2 days; Reason: Recheck today's complaints. - Problem is new. - Symptoms have improved. Signatures: Dispatcher [employer] Orlin Go MD MD cha Joaquin, Henry RN RN hj Orlin Berrios PA PA cp Lou Omalley RN RN tw2 Corrections: (The following items were deleted from the chart) 02/01 18:14 18:04 02/01/2019 18:04 Discharged to Home. Impression: Wedge compression fracture of tw2 second lumbar vertebra. Condition is Stable. Forms are Medication Reconciliation Form, Thank You Letter, Antibiotic Education, Prescription Opioid Use. Follow up: Private Physician; When: 1 - 2 days; Reason: Recheck today's complaints. Problem is new. Symptoms have improved. cp
--- NOTE | 2019-02-01 18:05 | ER ---
Nurse's Notes [facility] Name: Ashley Beebe Age: 63 yrs Sex: Female : 1955 Arrival Date: 02/01/2019 Time: 15:56 Bed 19 Private MD: David Willett S Diagnosis: Wedge compression fracture of second lumbar vertebra Presentation: 02/01 16:05 Presenting complaint: Patient states: i got severe back pain and i have it for weeks, hj denies trauma to the area; more on the lower back pain; denies F/C; denies nausea and vomiting;. Transition of care: patient was not received from another setting of care. Onset of symptoms was February 01, 2019. Risk Assessment: Do you want to hurt yourself or someone else? Patient reports no desire to harm self or others. Initial Sepsis Screen: Does the patient meet any 2 criteria? No. Patient's initial sepsis screen is negative. Does the patient have a suspected source of infection? No. Patient's initial sepsis screen is negative. Care prior to arrival: None. 16:05 Method Of Arrival: Ambulatory 16:05 Acuity: MARIANNA 3 Triage Assessment: 16:08 General: Appears in no apparent distress. uncomfortable, Behavior is calm, cooperative, hj appropriate for age. Pain: Complains of pain in back. Musculoskeletal: Circulation, motion, and sensation intact. Historical: - Allergies: 16:08 Adhesives; hj - Home Meds: 16:08 atorvastatin Oral [Active]; glipizide 5 mg Oral tab 1 tab 2 times per day [Active]; hj Invokana Oral [Active]; ketorolac 0.5 % ophthalmic drop [Active]; lisinopril Oral [Active]; metformin 1,000 mg Oral tr24 1 tab once daily [Active]; - PMHx: 16:08 Diabetes - NIDDM; diabetic foot ulcer; High Cholesterol; Hypertension; ovarian CA; hj pancreatic cancer; - PSHx: 16:08 Hysterectomy; hj - Immunization history:: Adult Immunizations up to date. - Social history:: Smoking status: Patient/guardian denies using tobacco, Patient/guardian denies using alcohol. - Ebola Screening: : Patient negative for fever greater than or equal to 101.5 degrees Fahrenheit, and additional compatible Ebola Virus Disease symptoms Patient denies exposure to infectious person Patient denies travel to an Ebola-affected area in the 21 days before illness onset. Screenin:08 Abuse screen: Denies threats or abuse. Denies injuries from another. Nutritional hj screening: No deficits noted. Tuberculosis screening: No symptoms or risk factors identified. Fall Risk None identified. Assessment: 17:02 General: Appears in no apparent distress. Behavior is calm, cooperative, appropriate tw2 for age. Pain: Complains of pain in back. Neuro: Level of Consciousness is awake, alert, obeys commands, Oriented to person, place, time, situation. Cardiovascular: Denies chest pain, shortness of breath, Heart tones S1 S2 Patient's skin is warm and dry. Respiratory: Airway is patent Respiratory effort is even, unlabored, Respiratory pattern is regular, symmetrical, Breath sounds are clear bilaterally. GI: No signs and/or symptoms were reported involving the gastrointestinal system. : No signs and/or symptoms were reported regarding the genitourinary system. EENT: No signs and/or symptoms were reported regarding the EENT system. Derm: No signs and/or symptoms reported regarding the dermatologic system. Musculoskeletal: Reports pain in back. 18:02 Reassessment: Patient appears in no apparent distress at this time. No changes from tw2 previously documented assessment. Patient and/or family updated on plan of care and expected duration. Pain level reassessed. Patient is alert, oriented x 3, equal unlabored respirations, skin warm/dry/pink. 18:13 Reassessment: Patient appears in no apparent distress at this time. Patient states tw2 feeling better. Patient states symptoms have improved. Vital Signs: 16:09 BP 129 / 65; Pulse 85; Resp 18; Temp 98.7(O); Pulse Ox 99% on R/A; Weight 58.97 kg; Height 5 ft. 3 in. (160.02 cm); Pain 10/10; 17:03 BP 109 / 61; Pulse 94; Resp 17; Pulse Ox 100% on R/A; tw2 18:02 BP 163 / 80; Pulse 73; Resp 17; Pulse Ox 100% on R/A; tw2 16:09 Body Mass Index 23.03 (58.97 kg, 160.02 cm) ED Course: 15:56 Patient arrived in ED. mr 15:57 David Willett MD is Private Physician. mr 16:06 Triage completed. hj 16:08 Arm band placed on right wrist. hj 16:09 Patient has correct armband on for positive identification. Placed in gown. Bed in low hj position. Call light in reach. Side rails up X 1. Adult w/ patient. 16:14 Orlin Berrios PA is PHCP. cp 16:14 Orlin Brown MD is Attending Physician. cp 16:21 Lou Omalley RN is Primary Nurse. tw2 16:35 Inserted saline lock: 22 gauge in right antecubital area, using aseptic technique. tw2 Blood collected. 16:54 CT Stone Protocol In Process Unspecified. EDMS 16:54 CT completed. Patient tolerated procedure well. Patient moved back from CT. kw1 18:13 No provider procedures requiring assistance completed. IV discontinued, intact, tw2 bleeding controlled, No redness/swelling at site. Pressure dressing applied. Administered Medications: 17:31 Drug: TORadol 30 mg Route: IVP; Site: right antecubital; tw2 18:01 Follow up: Response: No adverse reaction; Pain is decreased tw2 17:32 Drug: NS 0.9% 500 ml Route: IV; Rate: bolus; Site: right antecubital; tw2 18:13 Follow up: Response: No adverse reaction; IV Status: Order to discontinue infusion; IV tw2 Intake: 500ml Intake: 18:13 IV: 500ml; Total: 500ml. tw2 Outcome: 18:04 Discharge ordered by MD. cp 18:13 Discharged to home via wheelchair, with family. tw2 18:13 Condition: stable 18:13 Discharge instructions given to patient, family, Instructed on discharge instructions, follow up and referral plans. no drinking with medication, no driving heavy equipment, medication usage, Demonstrated understanding of instructions, follow-up care, medications, Prescriptions given X 1, 2, 3. 18:14 Patient left the ED. tw2 Signatures: Dispatcher [employer] [facility] [place] Josephine CansecoKwame RN Orlin Aly PA PA cp Lou Omalley RN RN tw2 Patrick Sharon kw1 Corrections: (The following items were deleted from the chart) 16:11 16:09 Pulse 85bpm; Resp 18bpm; Pulse Ox 99% RA; Temp 98.7F Oral; 58.97 kg; Height 5 ft. hj 3 in.; BMI: 23.0; Pain 10/10; hj
[2019-02-01 18:46] VITALS: TEMP 98.7
[2019-02-01 18:53] VITALS: O2SAT 100
[2019-02-01 19:23] VITALS: BP 163/80
== END 2019-02-01 18:14 | disposition home or self-care (01) ==
LOC: ER 15:52
DX: M48.56XA Collapsed vertebra, not elsewhere classified, lumbar region, initial encounter for fracture (principal); E11.9 Type 2 diabetes mellitus without complications; E78.00 Pure hypercholesterolemia, unspecified; I10 Essential (primary) hypertension
CPT/HCPCS: 96361; 85025; 80048; 36415; 80076; 83690; 76377; 74176; 96374; 99284; J7030